=== PATIENT | female | born 1970 | race Caucasian/White ===

== ENCOUNTER → 2025-05-02 08:12 | Outpatient (REF) | payer OTHER, SELFPAY | LOC: RCS 08:12 | PROVIDERS: ATTENDING PHYSICIAN Nuclear Medicine Nuclear Cardiology; FAMILY PHYSICIAN Family Medicine | DX: I34.0 Nonrheumatic mitral (valve) insufficiency (principal); I77.9 Disorder of arteries and arterioles, unspecified | CPT/HCPCS: 93306 ==

== ENCOUNTER → 2025-05-09 08:18 | Outpatient (REF) | payer OTHER, SELFPAY | LOC: RAD 08:18 | PROVIDERS: ATTENDING PHYSICIAN Nuclear Medicine Nuclear Cardiology; FAMILY PHYSICIAN Family Medicine | DX: I34.0 Nonrheumatic mitral (valve) insufficiency (principal); I77.9 Disorder of arteries and arterioles, unspecified | CPT/HCPCS: 93880 ==